=== PATIENT | male | born 1990 | race Caucasian/White ===

== ENCOUNTER 2017-11-10 20:30 | Inpatient (IN) | payer BC, OTHER ==
[~2017-11-10] VITALS: Ht 180.3 cm; Wt 72.6 kg
--- NOTE | 2017-11-10 23:40 | NUR ---
Pre-assessment Notes Assessment done in the intake office. Px appears unshaven and drowsy. Px has flat affect with poor eye contact. Px is A&Ox4. Px is ambulatory with steady gait. Speech is soft but audible. Px is here for medically supervised withdrawal from Heroin. Px is currently intoxicated. VS are as follows BP= 117/64, KS= 62, RR= 16, T= 97.0, O2sat= 98% on RA. Px has hx of seizures 5x to 6x where the last one was in 2016, px doesnt know the etiology of his seizures. Px is allergic to PCN. Px brought home medications for reconciliation. Admission process will continue in the unit.
[2017-11-11] MEDS ORDERED: OXCA300T PO (00:11)
[2017-11-11] MEDS ORDERED: GABA600T2 PO (00:11)
[2017-11-11] MEDS ORDERED: DESV50TA PO (00:11)
[2017-11-11] MEDS ORDERED: MIRALAX 17 GM POWD.PACK PO PRN (00:15)
[2017-11-11] MEDS ORDERED: IBUPROFEN 600 MG TABLET PO PRN (00:15)
[2017-11-11] MEDS ORDERED: LOPERAMIDE HCL 2 MG CAPSULE PO PRN ×2 (00:15)
[2017-11-11] MEDS ORDERED: BUPRENORPHINE HCL 2 MG TAB.SUBL SL PRN (00:15)
[2017-11-11] MEDS ORDERED: MAG HYDROX/AL HYDROX/SIMETH 30 ML LIQUID UDC PO PRN (00:15)
[2017-11-11] MEDS ORDERED: ONDANSETRON ODT 4 MG TAB.RAPDIS SL PRN (00:15)
[2017-11-11] MEDS ORDERED: MAGNESIUM HYDROXIDE 30 ML LIQUID UDC PO PRN (00:15)
[2017-11-11] MEDS ORDERED: HYDROXYZINE PAMOATE 25 MG CAPSULE PO PRN (00:15)
[2017-11-11] MEDS ORDERED: METHOCARBAMOL 750 MG TABLET PO PRN (00:15)
[2017-11-11] MEDS ORDERED: ACETAMINOPHEN 325 MG TABLET PO PRN (00:15)
[2017-11-11] MEDS ORDERED: ONDANSETRON 4 MG/2 ML VIAL IM PRN (00:15)
[2017-11-11] MEDS ORDERED: diphenhydrAMINE 50 MG CAPSULE PO PRN (00:15)
[2017-11-11] MEDS ORDERED: DICYCLOMINE HCL 20 MG TABLET PO PRN (00:15)
[2017-11-11 00:30] VITALS: BP 120/70
--- NOTE | 2017-11-11 00:30 | NUR ---
COWS deferred COWS deferred due to the px is intoxicated. We'll continue to monitor.
--- NOTE | 2017-11-11 00:30 | NUR ---
Side rails Px refused to put up the upper side rail on his right side. Px stated that he wanted it down for easy access of his food on the bed side table.
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
--- NOTE | 2017-11-11 01:00 | NUR ---
NO UDS Px can't provide urine yet for UDS. We'll continue to monitor.
[2017-11-11 04:00] VITALS: BP 122/76
--- NOTE | 2017-11-11 04:00 | NUR ---
COWS deferred COWS still deferred due to the px is intoxicated.
--- NOTE | 2017-11-11 04:00 | NUR ---
No UDS Px woke up and requesting a pass to smoke. Px stated that when he woke up, he went straight to the restroom to void. He forgot that he has to provide urine for UDS.
--- NOTE | 2017-11-11 04:56 | NUR ---
Clarification: Alcohol Use Patient verbalized this time that his seizures was due to withdrawals from drinking beer. He said that he started drinking at age 14 and for the past 2 months he was drinking "12-18 cans of beer" daily. Before that, he stated that he would drink 1-2 times per week of the same amount. He said that when he started using Heroin daily, he would also drink daily as well and felt like "my life is spiraling down so might as well drink beer with it." Last beer consumed was 11/08/2017, "at least a 12-pack that's for sure."
[2017-11-11 05:10] LABS: BASOPHILS % (AUTO) 0.5 % (0.0-2.0); EOSINOPHILS # (AUTO) 0.1 K/uL (0.0-0.7); EOSINOPHILS % (AUTO) 1.8 % (0.0-7.0); HEMATOCRIT 42.9 % (36.7-47.1); HEMOGLOBIN 14.4 g/dL (12.5-16.3); LYMPHOCYTES # (AUTO) 1.9 K/uL (20.0-40.0); LYMPHOCYTES % (AUTO) 26.5 % (20.5-51.5); MEAN CORPUSCULAR HEMOGLOBIN 29.7 uug (23.8-33.4); MEAN CORPUSCULAR HGB CONC 34 g/dL (32.5-36.3); MEAN CORPUSCULAR VOLUME 88.4 fL (73.0-96.2); MONOCYTES # (AUTO) 0.6 K/uL (2.0-10.0); MONOCYTES % (AUTO) 7.8 % (0.0-11.0); NEUTROPHILS # (AUTO) 4.6 K/uL (1.8-8.9); NEUTROPHILS % (AUTO) 63.4 % (38.5-71.5); PLATELET COUNT (AUTO) 267 K/uL (152-348); RED BLOOD CELL COUNT(AUTO) 4.85 MIL/uL (4.06-5.63); WHITE BLOOD COUNT (AUTO) 7.2 K/uL (3.6-10.2)
[2017-11-11] MEDS ORDERED: LORAZEPAM 1 MG TABLET PO PRN ×2 (05:15)
[2017-11-11] MEDS ORDERED: THIAMINE HCL 200 MG/2 ML VIAL IM ONE (05:15)
[2017-11-11] MEDS ORDERED: LORAZEPAM 2 MG/1 ML VIAL IM PRN (05:15)
--- NOTE | 2017-11-11 05:16 | NUR ---
Vit B1 injection refused Px refused the injection. He stated "I think I don't need that because last time I drink was 2 days ago before I came here."
[2017-11-11 05:17] LABS: ALANINE AMINOTRANSFERASE 24 U/L (16-63); ALKALINE PHOSPHATASE 77 U/L (50-136); AMYLASE 50 U/L (25-115); ASPARTATE AMINOTRANSFERASE 13 U/L (15-37); BILIRUBIN,TOTAL 0.7 mg/dL (0.2-1.0); CARBON DIOXIDE 29 mmol/L (21-32); CHLORIDE 103 mmol/L (98-107); CREATININE 1.4 mg/dL (0.6-1.3); GLUCOSE 83 mg/dL (74-106); LIPASE 81 U/L (73-393); MAGNESIUM 2.1 mg/dL (1.8-2.4); TOTAL PROTEIN, SERUM 6.9 g/dL (6.4-8.2); UREA NITROGEN, BLOOD 13 mg/dL (7-18)
[2017-11-11 05:19] LABS: ETHANOL < 3 MG/DL (0-0)
[2017-11-11 05:28] LABS: THYROID STIMULATING HORMONE 2.675 mIU/mL (0.358-3.740)
--- NOTE | 2017-11-11 06:53 | NUR ---
UDS Px finally provided urine for UDS.
--- NOTE | 2017-11-11 07:10 | NUR ---
End of Shift Notes During the shift, px had difficulty providing urine for UDS but px stated that he voided in the restroom just after he woke up around 0400. Px oral intake is 750 ml, voided 1x and No BM. Px slept for 3 hours. At 0630, px is awake on bed in fowlers position. At 0650, px finally provided urine for UDS. No COWS scored due to the px is intoxicated. Bed on lowest position, side rails up x1 on left side, and call light within reach. Well continue to monitor. Px endorsed to AM shift nurse.
--- NOTE | 2017-11-11 07:30 | NUR ---
Start of Shift Chief Nuclear Medicine Technologist received report on 27 year old male admitted to [facility] on 11/10/17 for Heroin and ETOH withdrawals. ETOH withdrawals based on new statement made by pt regarding ETOH consumption. Pt endorses allergies to PCN., full code and regular diet. Pt endorses PMH of asthma and heart murmur. Pt with history of withdrawal induced seizures, last in 2017. PPH of anxiety, depression and Bipolar DO. Pt currently on PRN Ativan and PRN Subutex for withdrawal symptoms. No COWS/CIWA performed on NOC, due to pts intoxificaton level when admitted, per NOC report. Chief Nuclear Medicine Technologist encounters pt in pts room. Pt is anxious, restless, and easily irritated. Pt is perseverating on getting a cigarette, demanding and pushy, poor boundaries and short attention span. A/O x4 and cooperative, with encouragement. Pt with racing thoughts and pressured speech. Bed in low position with wheels locked and side rails up x2. Will continue to monitor, support and encourage according to plan of care.
[2017-11-11 07:31] LABS: *AMPHETAMINE, URINE NEGATIVE (NEGATIVE); *BARBITURATE, URINE NEGATIVE (NEGATIVE); *CANNABINOID, URINE POSITIVE (NEGATIVE); *COCCAINE, URINE NEGATIVE (NEGATIVE); *OPIATE, URINE POSITIVE (NEGATIVE); *PHENCYCLIDINE SCREEN,URINE NEGATIVE (NEGATIVE)
--- NOTE | 2017-11-11 08:00 | NUR ---
CIWA 16/COWS 9 Pt is anxious, restless and irritable. Skin is moist, complains of nausea and headache, with TH. Will continue to monitor, support and encourage according to plan of care.
[2017-11-11 08:04] VITALS: BP 114/64
--- NOTE | 2017-11-11 08:41 | NUR ---
PRN Ativan Pt's initial CIWA 16. Pt is anxious and restless with nausea. Sleeping Bag Filler medicated pt per MD order with pt tolerating well. Will continue to monitor, support and encourage according to plan of care.
--- NOTE | 2017-11-11 08:45 | NUR ---
Psychiatrist Communication: Pt stated he takes 150mg Trileptal PO BID and 50mg Pristiq PO daily at home. Dr. Pereira made aware with new order for pt's own 150mg Trileptal PO ONE TIME and pt's own 50mg Pristiq PO ONE TIME. Psychiatrist to assess pt during the day and reconcile medications. All orders noted and carried out.
[2017-11-11] MEDS ORDERED: Medication Not On Formulary EA (Desvenlafaxine Succinate (Pristiq) 50 MG) PO SCH (09:00)
[2017-11-11] MEDS ORDERED: MULTIVITAMINS,THERAPEUTIC TABLET PO SCH (09:00)
[2017-11-11] MEDS ORDERED: OXCARBAZEPINE 300 MG TABLET PO SCH (09:00)
[2017-11-11] MEDS ORDERED: PATIENT MAY USE OWN MED- MD OK PO ONE (09:00)
[2017-11-11] MEDS ORDERED: FOLIC ACID 1 MG TABLET PO SCH (09:00)
--- NOTE | 2017-11-11 09:41 | NUR ---
PRN Re-Assessment Medication effective. Pt resting with eyes closed, even and unlabored respirations. Will continue to monitor, support and encourage according to plan of care.
[2017-11-11] MEDS ORDERED: PRISTIQ PO ONE (10:30)
[2017-11-11] MEDS ORDERED: OXCARBAZEPINE PO ONE (10:30)
[2017-11-11 12:00] VITALS: BP 100/42
--- NOTE | 2017-11-11 12:00 | NUR ---
CIWA 10/COWS 7 Pt is anxious and restless and endorses nausea, no emesis present. Pt endorses muscle spasms and chills. Pt's behavior and bright affect are not congruent with pt's statement of symptom withdrawals. Pt requests medication for anxiety and is offered Vistaril, in which pt states, " that will not work." Will continue to monitor, support and encourage according to plan of care.
--- NOTE | 2017-11-11 16:15 | NUR ---
AMA Discharge Pt irritable, angry and demanding. Pt is using profanity and insulting staff. Pt has been educated on proper behavior and continues to verbally be abusive. Pt is demanding of medication and ask, "can I get my scores, my scores must be high." Pt is familiar with the detoxification setting and is manipulating to get medication. Pt presents with VS WNL, no sweating, no hallucination, per pt report. Pt reports vomiting, with no evidence provided. Pt is offered Vistaril to help with pt's anxiety, but pt refuses, " that stuff doesn't work." Pt continues to escalate and requires a presence to calm the situation. Pt continues to be educated on leaving AMA, pt continues to demand a discharge, "if I am not getting my meds, I am out of here." Image Scientist unable to medicate with last CIWA 4 and COWS 6 at 1530. Image Scientist attempted to educate pt on importance of following doctors advice. Pt continues to escalate and demand medication or "I will leave AMA." Staff supplied appropriate paperwork, including community resources paperwork and escorted pt to main lobby exit.
[2017-11-12] MEDS ORDERED: THIAMINE HCL 100 MG TABLET PO SCH (09:00)
[2017-11-12] MEDS ORDERED: TUBERCULIN,PURIF.PROT.DERIV. 5 TU/0.1 ML TEST ID ONE (09:00)
[2017-11-12 10:10] LABS: HEPATITIS B SURFACE AG Negative (Negative)
== END 2017-11-11 16:15 | disposition left against medical advice (07) | DRG 894 ==
LOC: SRC 22:53
PROVIDERS: ADMIT Family Medicine Addiction Medicine; ATTEND Family Medicine Addiction Medicine
PROC: HZ2ZZZZ Detoxification Services for Substance Abuse Treatment (ICD-10-PCS; principal; 2017-11-10)
DX: F11.229 Opioid dependence with intoxication, unspecified (principal); F41.9 Anxiety disorder, unspecified; F17.210 Nicotine dependence, cigarettes, uncomplicated; Z81.1 Family history of alcohol abuse and dependence
CPT/HCPCS: 36415; 80307; 80346; 80349; 80361; 83690; 83735; 84443; 85025; 86592; 86705; 86803; 87340; 87806; A4663; G0480